=== PATIENT | male | born 1965 | race Caucasian/White ===

== ENCOUNTER 2017-07-02 08:47 | Emergency (ER) | payer OTHER ==
[~2017-07-02] VITALS: Ht 182.9 cm; Wt 105.7 kg
[~2017-07-02 08:47] MED LIST: FLEXERIL10 MG PO; MOBIC 15MG15 MG PO; MULTIVITAMIN1 TAB PO; PROTONIX 40MG T40 MG PO
--- NOTE | 2017-07-02 09:00 | ED NOSE COMPLAINT ---
History of Present Illness General Chief Complaint: Epistaxis/Nasal Foreign Body Stated Complaint: NOSE BLEED Source: patient, old records Exam Limitations: no limitations Vital Signs & Intake/Output Vital Signs & Intake/Output Vital Signs Date Time Temp Pulse Resp B/P B/P Pulse O2 O2 Flow FiO2 Mean Ox Delivery Rate 07/03 951 98.2 77 16 132/94 97 Room Air 07/02 0858 Room Air Allergies Coded Allergies: NO KNOWN ALLERGIES (02/17/15) Reconcile Medications CYCLOBENZAPRINE HCL (Flexeril) 10 MG TAB 1 TAB PO Q8H PRN spasm/pain Avoid operating motor vehicle or heavy machinery Meloxicam (Mobic 15MG) 15 MG TAB 1 TAB PO DAILY PRN PAIN/INFLAMMATION Multivitamin (Multiple Vitamins) 1 TAB TAB 1 TAB PO DAILY SUPPLEMENT ( Reported) Pantoprazole Sodium (Protonix) 40 MG TAB 40 MG PO DAILY ACID REFLUX (Reported ) Triage Note: SPONTANEOUS NOSE BLEED X 1 WEEK. NORMOTENSIVE, NO BLOOD THINERS. Triage Nurses Notes Reviewed? yes Onset: Abrupt Duration: week(s): (1), constant, waxing and waning Timing: recent history Injury Environment: home Severity: moderate No Modifying Factors: none Associated Symptoms: denies HPI: 52-year-old male presents to ER for evaluation stating that this is the sixth nosebleed he has had this week. Symptoms came on suddenly about an hour ago he' s been holding pressure however states it is now coming from both sides his nose running down his throat. He denies recent fall on his face. He denies chest pain shortness of breath. He saw his primary care physician this week who advised that if he has another nosebleed or his blood pressure was elevated to come to the ER. The patient was prescribed losartan in the past which he takes as a when necessary basis. He denies headache vision changes chest pain shortness of breath dizziness lightheadedness. the patient had a recent fall at work for which he was seen at [place] this past week however he states he did not fall and injure his nose he hurt his arm during the fall however that is better Past History Travel History Traveled to [place] past 21 day No Medical History Any Pertinent Medical History? none Surgical History Surgical History: none Psychosocial History What is your primary language Turkish Tobacco Use: Never used Family History Hx Contributory? No Review of Systems Review of Systems Constitutional: Reports: see HPI. Comments Review of systems: See HPI, All other systems negative. Constitutional, no chills no fever HEENT: no sore throat no congestion Cardiovascular: No chest pain , no palpitation Skin: no rashes, no change in skin Respiratory: No dyspnea no cough no sputum GI: No nausea no vomiting, no diarrhea Muscle skeletal: No joint pain, no back pain, no neck pain Neurologic: , no headache Heme/endocrine: No bruising Immunology: No lymphadenopathy Physical Exam Physical Exam General Appearance: well developed/nourished, alert, awake Nose: dried blood Comments: Well-developed well-nourished patient in no apparent distress. Head/Face: Atraumatic, no facial swelling Eyes: PERRL, EOMI, no conjunctival injection. Ear:External auditory canal and Tympanic membranes clear Nose: atraumatic.Normal inspection: No active bleeding Throat: Moist mucous membranes.Pharynx normal. No blood noted No pharyngeal erythema/exudate seen. No stridor/drooling or assymetry. No swelling or edema. Neck: Supple, no lymphadenopathy, FROM Back: FROM Cardiovascular: Regular rate and rhythms no murmur Respiratory: No respiratory distress. Patient speaking in full complete sentences. Breath sounds clear to auscultation bilaterally: NO W/R/R Extremities: full range of motion Neuro: awake, alert, and oriented to person, place and time. There were no obvious focal neurologic abnormalities. Skin: Warm & dry;No appreciable rash on exposed skin Psych: Mood affect normal, normal memory normal judgment. Progress Differential Diagnoses I considered the following diagnoses in my evaluation of the patient: [Anterior versus posterior epistaxis anemia for quite will state Plan of Care: Orders Procedure Date/time Status PARTIAL THROMBOPLASTIN TIME 07/02 913 Complete PROTHROMBIN TIME 07/02 913 Complete CBC WITHOUT DIFFERENTIAL 07/02 913 Complete BASIC METABOLIC PANEL 07/02 913 Complete Laboratory Tests 07/02/17 0921: Anion Gap 12, Estimated GFR > 60, BUN/Creatinine Ratio 21.3, Glucose 117 H, Calcium 9.6, PT 11.1, INR 1.02, APTT 29, CBC w Diff NO MAN DIFF REQ, RBC 5.01, MCV 88.8, MCH 30.1, MCHC 33.9, RDW 12.3, MPV 8.7, Gran % 52.9, Lymphocytes % 36.2, Monocytes % 7.4, Eosinophils % 3.0, Basophils % 0.5, Absolute Granulocytes 2.6, Absolute Lymphocytes 1.8, Absolute Monocytes 0.4, Absolute Eosinophils 0.2, Absolute Basophils 0 No active bleeding at this time, patient has had adverse reactions with Afrin and we will continue to monitor her labs ordered On repeat evaluation patient resting in no acute distress there is no active bleeding he denies any difficulty breathing no difficulty swallowing pending labs 1030-patient resting in no acute distress he's had no bleeding I discussed with the plan of care he will follow-up with his ear nose and throat physician tomorrow. Return precautions were discussed at length, given the patient's adverse reactions to Afrin I advised close observation pressure if bleeding redevelops, the patient feels comfortable with plan I advised however that if symptoms persist despite holding pressure he will require a rhino rocket at that time. He feels comfortable with this plan I advised that he begin taking his ear was started on a daily basis as he states that his blood pressure has been running high after these nosebleeds there is no headache vision changes chest pain, he is scheduled to also follow-up with his primary care physician this week as well he feels comfortable with plan to discharge at this time Initial ED EKG: none Departure Departure Disposition: HOME OR SELF CARE Condition: Stable Clinical Impression Primary Impression: Epistaxis Additional Instructions: Follow-up with your ear nose and throat physician on Monday. Take your losartan everyday. If bleeding redevelops pressure for 20 minutes, if his bleeding persist, you feel dizzy lightheaded or have any other concerns return to the emergency room. Departure Forms: Customer Survey General Discharge Information
[2017-07-02 09:32] LABS: ABSOLUTE BASOPHIL COUNT 0 /CUMM (0.0-0.2); ABSOLUTE EOSINOPHIL COUNT 0.2 /CUMM (0.0-0.7); ABSOLUTE GRANULOCYTE CT 2.6 /CUMM (1.4-6.5); ABSOLUTE LYMPH COUNT 1.8 /CUMM (1.2-3.4); ABSOLUTE MONOCYTE COUNT 0.4 /CUMM (0.10-0.60); BASOPHIL % 0.5 % (0.0-2.0); GRANULOCYTE % 52.9 % (42.2-75.2); HEMATOCRIT 44.5 % (42-52); MEAN CORPUSCULAR HGB 30.1 PG (27.0-31.0); MEAN CORPUSCULAR HGB CONC 33.9 G/DL (33.0-37.0); MEAN CORPUSCULAR VOLUME 88.8 FL (80.0-94.0); MEAN PLATELET VOLUME 8.7 FL (7.4-10.4); PLATELET COUNT 304 /CUMM (130-400); RBC DISTRIBUTION WIDTH 12.3 % (11.5-14.5); RED BLOOD CELL CT 5.01 /CUMM (4.70-6.10)
[2017-07-02 09:43] LABS: PT 11.1 SEC (9.4-12.5); PTT 29 SEC (25-37)
[2017-07-02 09:52] VITALS: BP 132/94
== END 2017-07-02 10:36 ==
LOC: ERH
PROVIDERS: Physician Assistant Medical
DX: R04.0 Epistaxis (principal)